=== PATIENT | female | born 1995 | race Caucasian/White ===

== ENCOUNTER 2021-12-16 04:29 | Emergency (ER) | payer OTHER, SELFPAY ==
[2021-12-16] VITALS (24 sets, daily range): BP systolic 111–157; BP diastolic 59–109; PULSE 71–106; RESP 12–21; TEMP 36.4; O2SAT 90–100
--- NOTE | ~2021-12-16 | US_ITS ---
EXAMINATION: US OB <=14 wk fetus w TV DATE: 12/16/2021 06:41 INDICATION: 8 weeks with worsening left lower quadrant pain. TECHNIQUE: Real-time pelvic ultrasound utilizing both a transvaginal and transabdominal probe was pe rformed. The interpreting radiologist was not present for the study. COMPARISON: None. FINDINGS: The uterus measures 7.0 x 2.5 x 3.8 cm. The endometrial complex measures5 mm in thickness. No eviden t intrauterine gestational sac. The right ovary measures 3.4 x 2.2 x 2.2 cm. The left ovary measures 3.8 x 2.4 x 2.3 cm. Vascular graham w identified at both the left and right ovaries on color Doppler. Situated between and abutting both the left ovary and the uterus is a 2.1 x 1.3 x 1.5 cm thick-walled centrally anechoic cystic lesion. There is no free fluid in the pelvis. IMPRESSION: 1. No evident intrauterine gestational sac for which the differential would include early, failed or ectopic . 2. 0.1 x 1.3 x 1.5 cm thick-walled centrally cystic lesion situated between and abutting both the lef t ovary and the uterus. Differential would include eccentrically positioned and exophytic corpus lute um cyst arising from the ovary or potentially an ectopic tubal . Would recommend [facility]EM[facility] A CLASS cons ultation. Dr. Agustin discussed these findings with Dr. Dc at 6:55 AM. Reviewed, dictated and finalized at location A. IMPRESSION: 1. No evident intrauterine gestational sac for which the differential would inc lude early, failed or ectopic . 2. 0.1 x 1.3 x 1.5 cm thick-walled centrally cystic lesion situated between and abutting both the left ovary and the uterus. Differential would include eccent rically positioned and exophytic corpus luteum cyst arising from the ovary or p otentially an ectopic tubal . Would recommend [facility] A CLASS consultation. Dr. Agustin discussed these findings with Dr. Dc at 6:55 AM.
[2021-12-16] MEDS: SODIUM CHLORIDE 0.9% IV 1,000 ML 999 ML IV CONT (04:54)
--- NOTE | 2021-12-16 05:00 | ED.GENADULT ---
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 Patient states that she has had follow-up with her COMPLIANCE NURSE and they suspect she is approximately 7-8 weeks . Patient has not had any abdominal ultrasound with this . Patient began having some left-sided abdominal pain last night and states that the abdominal pain is worsening. Patient states that when she uses the restroom she had been wiping and having blood on the paper. Patient states just prior to arrival she went to use the restroom and states she passed a clot at her the bowl red. This is the patient's first . Related Data Allergies Allergy/AdvReac Type Severity Reaction Status Date / Time No Known Allergies Allergy Verified 12/16/21 04:35 Course Course Emergency Course: Ultrasound was concerning for an ectopic . COMPLIANCE NURSE was paged. Patient was updated on the results of the ultrasound and on the plan for OB consultation. Patient is still having left lower quadrant pain. Case was discussed with Dr. Debbie Avila. Due to no free fluid in the pelvis and no concern for acute rupture it was felt that the patient would be able to be treated with methotrexate and discharged to home. -- Emily called back and stated that if this was a highly desired that they have the option of holding off on the current methotrexate, having a repeat beta-hCG in 2 days and following by ultrasound. I discussed this with the patient and they state this was a planned but they would prefer to wait the 2 days. I stressed the importance of return to the emergency department if the patient had any sharp acute changes in her pain. Patient was aware of the risk of discharge to home and patient preferred to hold on the methotrexate and have follow-up with Dr. Avila. Beta hCG was ordered for . Vital Signs Vital signs: Vital Signs Temperature 97.6 F 12/16/21 04:33 Pulse Rate 106 H 12/16/21 04:33 Respiratory Rate 20 12/16/21 04:33 Blood Pressure 157/89 H 12/16/21 04:33 Pulse Oximetry 100 12/16/21 04:33 Temperature 97.6 F 12/16/21 04:41 Pulse Rate 106 H 12/16/21 04:41 Respiratory Rate 20 12/16/21 04:41 Blood Pressure 157/89 H 12/16/21 04:41 Pulse Oximetry 100 12/16/21 04:41 Medical Decision Making Vital Signs Vital Signs: Vital Signs Temperature 97.6 F 12/16/21 04:33 Pulse Rate 106 H 12/16/21 04:33 Respiratory Rate 20 12/16/21 04:33 Blood Pressure 157/89 H 12/16/21 04:33 Pulse Oximetry 100 12/16/21 04:33 Temperature 97.6 F 12/16/21 04:41 Pulse Rate 106 H 12/16/21 04:41 Respiratory Rate 20 12/16/21 04:41 Blood Pressure 157/89 H 12/16/21 04:41 Pulse Oximetry 100 12/16/21 04:41 Lab Data Lab results reviewed: Yes I reviewed the patient's lab results. Result diagrams: 12/16/21 04:46 12/16/21 04:46 Labs: Lab Results 12/16/21 12/16/21 12/16/21 Range/Units 04:46 04:46 04:46 WBC 7.8 (4.5-10.0) K/mm3 RBC 5.08 (4.2-5.4) M/mm3 Hgb 14.5 (12.0-15.0) g/dL Hct 44.0 (37.0-47.0) % MCV 86.6 (80-100) fl MCH 28.5 (26-34) pg MCHC 33.0 (32-36) g/dl RDW 11.4 L (11.5-14.5) % Plt Count 235 (150-375) k/mm3 MPV 9.8 (7.4-10.4) fl Immature Gran % (Auto) 0.3 (0-0.5) % Neut % (Auto) 47.3 (45.5-73.1) % Lymph % (Auto) 40.9 (18.3-44.2) % [place] % (Auto) 8.2 (2.6-8.5) % Eos % (Auto) 2.8 (0-4.4) % Baso % (Auto) 0.5 (0.2-1.2) % Lymph # (Auto) 3.19 (0.9-3.2) K/mm3 [place] # (Auto) 0.6 (0.1-0.6) K/mm3 Eos # (Auto) 0.2 (0-0.3) K/mm3 Baso # (Auto)
[2021-12-16 05:04] LABS: Basophils Percent Auto 0.5 % (0.2-1.2); Eosinophils Absolute Auto 0.2 K/mm3 (0-0.3); Eosinophils Percent Auto 2.8 % (0-4.4); Hemoglobin 14.5 g/dL (12.0-15.0); Immature Granulocyte Absolute 0.02 K/mm3 (0.00-0.031); Immature Granulocyte Percent A 0.3 % (0-0.5); Lymphocytes Absolute Auto 3.19 K/mm3 (0.9-3.2); Lymphocytes Percent Auto 40.9 % (18.3-44.2); Mean Corpuscular Hemoglobin 28.5 pg (26-34); Mean Corpuscular Volume 86.6 fl (80-100); Mean Platelet Volume 9.8 fl (7.4-10.4); Monocytes Absolute Auto 0.6 K/mm3 (0.1-0.6); Monocytes Percent Auto 8.2 % (2.6-8.5); Neutrophils Absolute Auto 3.7 K/mm3 (1.3-6.7); Neutrophils Percent Auto 47.3 % (45.5-73.1); Platelet Count Result 235 k/mm3 (150-375); Red Blood Count 5.08 M/mm3 (4.2-5.4); Red Cell Distribution Width 11.4 % (11.5-14.5); White Blood Count 7.8 K/mm3 (4.5-10.0)
[2021-12-16 05:19] LABS: Alanine Aminotransferase 24 U/L (4-35); Alkaline Phosphatase 64 U/L (38-126); Anion Gap 8 mmol/L (8-16); Aspartate Amino Transferase 34 U/L (14-36); Bilirubin,Total 0.3 mg/dL (0.2-1.3); Blood Urea Nitrogen 10 mg/dL (7-17); Calcium 9.5 mg/dL (8.4-10.2); Carbon Dioxide 26 mmol/L (22-30); Chloride 103 mmol/L (98-107); Estimated CRCL calculation 134 ml/min; Estimated Glomerular Filt Rate > 60; Glucose 99 mg/dL (65-110); Potassium 3.7 mmol/L (3.4-5.0); Sodium 137 mmol/L (137-145)
[2021-12-16] MEDS: HYDROmorphone HCL INJ (*CRX) 1 MG/ML SYR IV PUSH (05:36)
[2021-12-16] MEDS: ONDANSETRON INJ 4 MG/2 ML VIAL IV PUSH (05:36)
[2021-12-16] MEDS: HYDROmorphone HCL INJ (*CRX) 1 MG/ML SYR 0.5 MG IV PUSH (07:54)
== END 2021-12-16 08:35 | disposition home or self-care (01) ==
PROVIDERS: Emergency Provider Emergency Medicine; PCP Nurse Practitioner Family
DX: O00.202 Left ovarian pregnancy without intrauterine pregnancy (principal)
CPT/HCPCS: 36415; 76801; 76817; 80053; 83605; 84702; 85025; 85610; 86850; 86900; 86901; 96361; 96374; 96375; 96376; 99284; J1170; J2405; J7030

== ENCOUNTER 2021-12-17 09:21 | Outpatient (CLI) | payer OTHER, SELFPAY ==
--- NOTE | ~2021-12-17 | US_ITS ---
EXAMINATION: US OB <=14 wk fetus w TV EXAM DATE: 12/17/2021 10:06 INDICATION: O36.80X0 - with inconclusive viability, n... 1st trimester. TECHNIQUE: Pelvic obstetrical transabdominal sonogram was performed by a technologist. There are mu ltiple grayscale and Doppler images available for interpretation. Comparison is made to prior examina tion from 12/16/2021. FINDINGS: The uterus measures 7.0 x 4.5 x 2.9 cm. There is trace fluid in the endometrial canal. No g estation sac is identified. No free pelvic fluid. The right ovary measures 3.3 x 2.7 x 2.2 cm and is morphologically normal, flow confirmed. Left ovary measures 3.3 x 2.7 x 3.1 cm, and there appears to be another heterogeneous vascularized re gion between the ovary and uterus measuring 2.5 x 1.6 x 1.7 cm. This potentially could be tubal ectop ic , but cannot confirm yolk sac or pole. IMPRESSION: Persistent vascularized region between uterus and left ovary, possible tubal ectopic pre gnancy. No free pelvic fluid. Trace endometrial fluid without intrauterine . Reviewed, dictated and finalized at location B. IMPRESSION: Persistent vascularized region between uterus and left ovary, poss ible tubal ectopic . No free pelvic fluid. Trace endometrial fluid wit hout intrauterine .
[2021-12-17 10:29] LABS: Basophils Percent Auto 0.6 % (0.2-1.2); Eosinophils Absolute Auto 0.2 K/mm3 (0-0.3); Eosinophils Percent Auto 4.3 % (0-4.4); Hematocrit 42.8 % (37.0-47.0); Immature Granulocyte Absolute 0.01 K/mm3 (0.00-0.031); Immature Granulocyte Percent A 0.2 % (0-0.5); Lymphocytes Absolute Auto 1.86 K/mm3 (0.9-3.2); Lymphocytes Percent Auto 36.3 % (18.3-44.2); Mean Corpuscular HGB Conc 32.7 g/dl (32-36); Mean Corpuscular Hemoglobin 28.7 pg (26-34); Mean Corpuscular Volume 87.7 fl (80-100); Mean Platelet Volume 9.9 fl (7.4-10.4); Monocytes Absolute Auto 0.5 K/mm3 (0.1-0.6); Monocytes Percent Auto 9.2 % (2.6-8.5); Neutrophils Absolute Auto 2.5 K/mm3 (1.3-6.7); Neutrophils Percent Auto 49.4 % (45.5-73.1); Platelet Count Result 214 k/mm3 (150-375); Red Blood Count 4.88 M/mm3 (4.2-5.4); Red Cell Distribution Width 11.4 % (11.5-14.5); White Blood Count 5.1 K/mm3 (4.5-10.0)
[2021-12-17 10:37] LABS: Potassium 3.9 mmol/L (3.4-5.0)
[2021-12-17 10:42] LABS: Alanine Aminotransferase 29 U/L (4-35); Albumin Level 4.8 g/dL (3.5-5.1); Alkaline Phosphatase 62 U/L (38-126); Anion Gap 8 mmol/L (8-16); Aspartate Amino Transferase 34 U/L (14-36); Bilirubin,Total 0.3 mg/dL (0.2-1.3); Blood Urea Nitrogen 7 mg/dL (7-17); Calcium 9.4 mg/dL (8.4-10.2); Carbon Dioxide 28 mmol/L (22-30); Chloride 103 mmol/L (98-107); Estimated Glomerular Filt Rate > 60; Glucose 88 mg/dL (65-110); Sodium 139 mmol/L (137-145)
== END 2021-12-17 09:22 | disposition home or self-care (01) ==
PROVIDERS: PCP Nurse Practitioner Family; Visit Provider Obstetrics & Gynecology
DX: O36.80X0 Pregnancy with inconclusive fetal viability, not applicable or unspecified (principal)
CPT/HCPCS: 36415; 76801; 76817; 80053; 84702; 85025

== ENCOUNTER 2021-12-20 11:45 | Outpatient (CLI) | payer OTHER, SELFPAY ==
[2021-12-20 12:29] LABS: Beta HCG Quantitative 473.56 mIU/ML
== END 2021-12-20 11:46 | disposition home or self-care (01) ==
LOC: ANHOBOP 11:48
PROVIDERS: Visit Provider Obstetrics & Gynecology
DX: O36.80X0 Pregnancy with inconclusive fetal viability, not applicable or unspecified (principal); Z3A.00 Weeks of gestation of pregnancy not specified
CPT/HCPCS: 36415; 84702

== ENCOUNTER 2021-12-23 13:36 | Outpatient (CLI) | payer OTHER, SELFPAY | END 2021-12-23 13:37 | disposition home or self-care (01) | LOC: ANHLAB 13:38 | PROVIDERS: Visit Provider Obstetrics & Gynecology | DX: O36.80X0 Pregnancy with inconclusive fetal viability, not applicable or unspecified (principal); Z3A.00 Weeks of gestation of pregnancy not specified | CPT/HCPCS: 36415; 84702 ==

== ENCOUNTER 2021-12-26 23:32 | Emergency (ER) | payer OTHER, SELFPAY ==
--- NOTE | ~2021-12-26 | US_ITS ---
EXAMINATION: US OB <=14 wk fetus w TV EXAM DATE: 12/27/2021 01:03 INDICATION: Known ectopic, acute worsening pain . 1st trimester. TECHNIQUE: Pelvic obstetrical transabdominal sonogram was performed by a technologist. There are mu ltiple grayscale and Doppler images available for interpretation. Comparison is made to prior examina tion from 12/17/2021. FINDINGS: The uterus measures 7.1 x 4.0 x 2.9 cm, has an increase in the fundal endometrial canal thi ckness,, and development of anechoic fluid component along with some echogenic endometrial material. No heart tones identified within this. Left ovary measures 3.3 x 2.3 x 2.7 cm, not significant changed. Again there is a heterogeneous left adnexal region measuring 1.7 x 1.3 x 1.5 cm (previous dimensions 2.5 x 1.6 x 1.7 cm. Small cystic com ponent within this, possible tubal ectopic location. Right ovary unremarkable. IMPRESSION: 1. No viable intrauterine or extrauterine . 2. Mild decrease in size of left adnexal heterogeneous region, possible tubal ectopic . 3. Small amount of endometrial canal fluid and echogenic debris. Reviewed, dictated and finalized at location A.
[2021-12-26 23:35] VITALS: BP 140/85; PULSE 100; RESP 17; TEMP 36.1; O2SAT 100
--- NOTE | 2021-12-27 00:02 | ED.GENADULT ---
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 Patient initially had ultrasound on 331 and ectopic was suspected. Patient was started on methotrexate. Patient has been having follow-up with Dr. Avila and her beta hCG was not decreasing steady enough so she was given a second dose of methotrexate on 12/24. Patient states that her pain had been controlled and she had not needed any medications for pain control until tonight she had increased left lower quadrant pain. Patient has been having persistent intermittent vaginal bleeding but reports no change in vaginal bleeding today. Related Data Home Medications Medication Instructions Recorded Confirmed escitalopram oxalate 10 mg tablet 10 mg PO DAILY 12/17/21 12/17/21 Allergies Allergy/AdvReac Type Severity Reaction Status Date / Time No Known Allergies Allergy Verified 12/26/21 23:37 Review of Systems Review of Systems: CONSTITUTIONAL: Denies fever, chills, or sweats. EYES: Denies visual changes, redness, or discharge. ENT: Denies rhinorrhea, congestion, sore throat, or otalgia. CARDIOVASCULAR: Denies chest pain, palpitations, or edema. RESPIRATORY: Denies cough or dyspnea. GASTROINTESTINAL: Left lower quadrant pain. GENITOURINARY: Denies dysuria or hematuria. SKIN: Denies rash or itching. MUSCULOSKELETAL: Denies back pain, joint pain, or myalgia. NEUROLOGIC: Denies headache, numbness, or weakness. [facility] Surgical History Surgical History (Updated 12/17/21 @ 08:20 by Rosalind Lee MA) History of cholecystectomy History of tonsillectomy and adenoidectomy Family History Family History (Updated 12/17/21 @ 08:21 by Rosalind Lee MA) Mother Endometriosis Other Thyroid disease Social History Social History (Updated 12/17/21 @ 08:22 by Rosalind Lee MA) Smoking status: Never smoker Alcohol intake: never Substance use: never Substance use type: does not use Additional occupation/education comments: stay at home Gender identity (if verbalized by the patient): Female Sexual Orientation (if Verbalized by the Patient): Straight or Heterosexual Exam Narrative: APPEARANCE: Well appearing, no pain, no distress, well-nourished. HEAD: normocephalic, atraumatic. EYES: PERRLA/EOMI, conjunctivae clear. RESPIRATORY: Airway patent, respirations nonlabored. Clear to auscultation bilaterally, no rales, rhonchi, wheezing. CARDIOVASCULAR: Regular rate and rhythm without murmurs rubs or gallops. ABDOMINAL: Soft nondistended, normal bowel sounds. Some left lower quadrant tenderness to palpation MUSCULOSKELETAL: Moves all extremities. Strength/ROM intact, No edema, No calf tenderness. NEURO: Alert. Cranial nerves II through XII intact. Good gait. Good coordination SKIN: Warm, dry. Normal Color Course Course Emergency Course: Discussed case with Dr Avila. Requested a repeat US. labs pending at time of consult. Dr. Avila requested an ultrasound to reevaluate for ruptured ectopic. Patient's beta-hCG is decreased compared to 12/23. Ultrasound showed no free fluid. Patient's pain is controlled at this time. Case was rediscussed with Dr. Avila and she was comfortable with the plan for discharge to home and close follow-up. Patient and family were updated on the results of the work-up. Patient will be provided medications for pain control. Patient states that she was having some issues with constipation and patient was educated on the use of MiraLAX and increasing her hydration. All questions and concerns were addressed. Vital Signs Vital signs: Vital Si
[2021-12-27] MEDS: HYDROmorphone HCL INJ (*CRX) 1 MG/ML SYR IV PUSH ×2 (00:17→03:27)
[2021-12-27] MEDS: ONDANSETRON INJ 4 MG/2 ML VIAL IV PUSH (00:17)
[2021-12-27] MEDS: SODIUM CHLORIDE 0.9% IV 1,000 ML 999 ML IV CONT (00:17)
[2021-12-27 00:20] LABS: Basophils Percent Auto 0.5 % (0.2-1.2); Eosinophils Absolute Auto 0.2 K/mm3 (0-0.3); Eosinophils Percent Auto 3.2 % (0-4.4); Hematocrit 38.1 % (37.0-47.0); Hemoglobin 12.7 g/dL (12.0-15.0); Immature Granulocyte Absolute 0.01 K/mm3 (0.00-0.031); Immature Granulocyte Percent A 0.1 % (0-0.5); Lymphocytes Absolute Auto 2.67 K/mm3 (0.9-3.2); Lymphocytes Percent Auto 35.9 % (18.3-44.2); Mean Corpuscular HGB Conc 33.3 g/dl (32-36); Mean Corpuscular Hemoglobin 28.7 pg (26-34); Mean Corpuscular Volume 86.2 fl (80-100); Mean Platelet Volume 9.6 fl (7.4-10.4); Monocytes Absolute Auto 0.3 K/mm3 (0.1-0.6); Monocytes Percent Auto 4.6 % (2.6-8.5); Neutrophils Absolute Auto 4.1 K/mm3 (1.3-6.7); Neutrophils Percent Auto 55.7 % (45.5-73.1); Platelet Count Result 247 k/mm3 (150-375); Red Blood Count 4.42 M/mm3 (4.2-5.4); Red Cell Distribution Width 11.7 % (11.5-14.5); White Blood Count 7.4 K/mm3 (4.5-10.0)
[2021-12-27 00:24] LABS: INR 0.9; Prothrombin Time 12.1 Seconds (11.1-14.7)
[2021-12-27 00:47] LABS: Alanine Aminotransferase 71 U/L (4-35); Albumin Level 4.1 g/dL (3.5-5.1); Alkaline Phosphatase 66 U/L (38-126); Anion Gap 5 mmol/L (8-16); Aspartate Amino Transferase 47 U/L (14-36); Bilirubin,Total 0.4 mg/dL (0.2-1.3); Blood Urea Nitrogen 14 mg/dL (7-17); Calcium 8.4 mg/dL (8.4-10.2); Carbon Dioxide 25 mmol/L (22-30); Chloride 105 mmol/L (98-107); Estimated Glomerular Filt Rate > 60; Glucose 143 mg/dL (65-110); Potassium 3.7 mmol/L (3.4-5.0); Sodium 135 mmol/L (137-145)
[2021-12-27] MEDS: HYDROmorphone HCL INJ (*CRX) 1 MG/ML SYR 0.5 MG IV PUSH (02:08)
== END 2021-12-27 03:34 | disposition home or self-care (01) ==
PROVIDERS: Emergency Provider Emergency Medicine; PCP Nurse Practitioner Family
DX: O00.90 Unspecified ectopic pregnancy without intrauterine pregnancy (principal); R10.2 Pelvic and perineal pain
CPT/HCPCS: 36415; 76801; 76817; 80053; 84702; 85025; 85610; 86850; 86900; 86901; 96361; 96374; 96375; 96376; 99284; J1170; J2405; J7030

== ENCOUNTER 2021-12-30 09:57 | Outpatient (CLI) | payer OTHER, SELFPAY ==
[2021-12-30 11:06] LABS: Beta HCG Quantitative 50.34 mIU/ML
== END 2021-12-30 09:58 | disposition home or self-care (01) ==
LOC: ANHLAB 09:58
PROVIDERS: PCP Nurse Practitioner Family; Visit Provider Obstetrics & Gynecology
DX: O36.80X0 Pregnancy with inconclusive fetal viability, not applicable or unspecified (principal); Z3A.00 Weeks of gestation of pregnancy not specified
CPT/HCPCS: 36415; 84702

== ENCOUNTER 2022-01-13 07:45 | Outpatient (CLI) | payer OTHER, SELFPAY ==
[2022-01-13 08:27] LABS: Beta HCG Quantitative < 2.39 mIU/ML
== END 2022-01-13 07:46 | disposition home or self-care (01) ==
LOC: ANHLAB 07:47
PROVIDERS: PCP Nurse Practitioner Family; Visit Provider Obstetrics & Gynecology
DX: O00.90 Unspecified ectopic pregnancy without intrauterine pregnancy (principal)
CPT/HCPCS: 36415; 84702

== ENCOUNTER 2022-07-07 09:21 | Outpatient (CLI) | payer OTHER, SELFPAY ==
[2022-07-07 10:29] LABS: Beta HCG Quantitative < 2.39 mIU/ML
[2022-07-10 04:14] LABS: FSH 4.8 mIU/mL (***); Prolactin 12.9 ng/mL (***)
[2022-07-11 02:26] LABS: DHEA-Sulfate 363 mcg/dL (18-391)
[2022-07-13 06:55] LABS: Testosterone Free 1.9 pg/mL (0.1-6.4); Testosterone Total 20 ng/dL (2-45)
[2022-07-15 20:36] LABS: Estradiol, Ultrasensitive 48 pg/mL
== END 2022-07-07 09:22 | disposition home or self-care (01) ==
LOC: ANHLAB 09:23
PROVIDERS: PCP Nurse Practitioner Family; Visit Provider Obstetrics & Gynecology
DX: N97.1 Female infertility of tubal origin (principal)
CPT/HCPCS: 36415; 82627; 82670; 83001; 84146; 84402; 84403; 84702

== ENCOUNTER 2022-08-02 09:55 | Outpatient (CLI) | payer OTHER, SELFPAY ==
[2022-08-08 18:11] LABS: Progesterone 8.1 ng/mL (***)
== END 2022-08-02 09:56 | disposition home or self-care (01) ==
LOC: ANHLAB 09:56
PROVIDERS: PCP Nurse Practitioner Family; Visit Provider Obstetrics & Gynecology
DX: N97.1 Female infertility of tubal origin (principal)
CPT/HCPCS: 36415; 84144

== ENCOUNTER → 2023-02-08 11:25 | Outpatient (CLI) | payer OTHER, SELFPAY ==
--- NOTE | ~2023-02-08 | US_ITS ---
EXAMINATION: US pelvic complete w TV DATE: 02/08/2023 11:51 INDICATION: Left pelvic pain. Comparison:Ultrasound dated 12/27/2021 TECHNIQUE: Multiple transabdominal and endovaginal sonographic images of the pelvis performed. FINDINGS: The uterus measures 7.1 x 2.7 x 3.9 cm. The endometrial complex measures 3 mm. The right ovary measures 2.9 x 2 x 2.7 cm and the left ovary measures 3.1 x 2.2 x 2.2 cm. There is a pedunculated 1.8 x 1.3 x 1.5 cm mass contiguous with the left ovary with possible associated follicul ar changes. This is not significantly changed from prior study allowing for differences of technique. Consider correlation with MRI without and with contrast. There are small follicles in each ovary. No rmal doppler signal in both ovaries. There is no free fluid in the pelvis. There are no abnormal masses seen on either side. IMPRESSION: 1. Pedunculated 1.8 x 1.3 x 1.5 cm mass contiguous with the left ovary with possible follicular hanson es. This is not significantly changed from prior study allowing for differences of technique. Conside r correlation with MRI without and with contrast. Reviewed, dictated and finalized at location L. IMPRESSION: 1. Pedunculated 1.8 x 1.3 x 1.5 cm mass contiguous with the left ovary with pos sible follicular changes. This is not significantly changed from prior study al lowing for differences of technique. Consider correlation with MRI without and with contrast.
== END ==
PROVIDERS: PCP Nurse Practitioner Family; Visit Provider Obstetrics & Gynecology
DX: R10.2 Pelvic and perineal pain (principal)
CPT/HCPCS: 76830; 76856

== ENCOUNTER 2023-02-08 11:52 | Outpatient (CLI) | payer OTHER, SELFPAY ==
[2023-02-08 21:28] LABS: Beta HCG Quantitative < 2.39 mIU/ML
[2023-02-12 04:29] LABS: FSH 5.7 mIU/mL (***); Progesterone 0.5 ng/mL (***); Prolactin 7.7 ng/mL (***)
[2023-02-12 13:03] LABS: DHEA-Sulfate 428 mcg/dL (18-391)
[2023-02-13 12:58] LABS: Testosterone Free 4.2 pg/mL (0.1-6.4); Testosterone Total 37 ng/dL (2-45)
[2023-02-15 14:53] LABS: Anti Mullerian Hormone,Female 10.42 ng/mL (0.69-13.39)
[2023-02-20 00:06] LABS: Estradiol, Ultrasensitive 35 pg/mL
== END 2023-02-08 11:53 | disposition home or self-care (01) ==
LOC: ANHGOSHLAB 11:53
PROVIDERS: PCP Nurse Practitioner Family; Visit Provider Obstetrics & Gynecology
DX: N92.6 Irregular menstruation, unspecified (principal)
CPT/HCPCS: 36415; 82627; 82670; 83001; 83498; 84144; 84146; 84402; 84403; 84443; 84702

== ENCOUNTER 2023-02-28 01:42 | Day surgery (SDC) | payer OTHER, SELFPAY ==
[2023-02-21 14:20] VITALS: BMI 25.9
--- NOTE | 2023-02-21 14:21 | SUR.PREOP ---
Report to the Outpatient Waiting Room, entrance under the green pavilion located off [facility], at time _0745 on date _02/28/23 . Planned Procedure Time: _944 . Time changes happen often and if your time is changed the preop area will call you the afternoon before. - You and your visitor will be asked to self-screen and do not enter if you have any COVID symptoms. - A mask is optional within the hospital at this time. Patients may have clear liquids (water, carbonated beverages, clear teas, apple juice) until 3 hours prior to surgery with a maximum of 20 ounces. - No food from midnight until time of surgery - Infants may have breast milk until 4 hours before surgery, infant formula 6 hours prior to surgery. - Children will be allowed to drink immediately following surgery. If applicable, please bring a bottle or sippy cup to assist with drinking. Juice, water, soda, and popsicles are readily available. For infants on formula, please bring formula the day of surgery. Pacifiers are allowed. Take the following medications with a SIP of water the morning of surgery: ____n/a DO NOT STOP ANY OF YOUR OTHER PRESCRIPTION MEDICATIONS PRIOR TO SURGERY ?EXCEPT THE FOLLOWING Medications to discontinue per physician __vitamins Date to take last dose___02/25/23 Please no make-up, nail malian, hairspray, perfume, deodorant, or body powder the day of surgery. No jewelry (including any body piercings) or valuables the day of surgery, leave them at home. Please take a shower or bath the night before, or the morning of, surgery with an antibacterial soap. Wear comfortable, loose fitting clothing. Children are encouraged to wear pajamas. - Jewelry must be removed prior to entering the operating room. Rings and piercings that are not removed may be cut off. - The hospital will not accept responsibility for valuables. - Please leave all valuables, including medications, at home the day of surgery. If you are going home after surgery, a licensed otr flatbed driver must drive you home. - NO public transportation without another adult if you receive anesthesia. - We recommend that an adult stay with you for 24 hours following discharge. - We also recommend that you do not drive, make important decision, drink alcoholic beverages, or take any drugs that were not prescribed by your health care provider for at least 24 hours after your discharge time. For Pediatric surgeries, we recommend two adults accompany the child home. Follow any additional instructions given to you from your surgeon. If you or anyone in your household have experienced Covid symptoms in the past week, please notify your surgeon or the nurse liaison at the phone number below for possible testing. Telephone instructions given to _lenny alvarenga and asked if any additional questions and then verbalized understanding. Patient advised to call surgeon office or pre surgery nurse liaison [phone] if any additional questions.
[2023-02-28] VITALS (13 sets, daily range): BP systolic 110–144; BP diastolic 61–88; PULSE 63–87; RESP 8–18; TEMP 36.3–37.4; O2SAT 96–100
--- NOTE | 2023-02-28 07:06 | WPDHPUPDATE1 ---
History and Physical Update Update Date/Time: 02/28/23 07:06 History and Physical has been reviewed, including an updated exam of the patient. There are NO changes in the patient's condition. Risks, benefits, and alternatives have been discussed and questions answered. Patient agrees to proceed with diagnostic laparoscopy, with possible unilateral cystectomy, and possible fulguration of any endometrial implants.
[2023-02-28] MEDS: ACETAMINOPHEN 500 MG TABLET 1000 MG PO (08:11)
[2023-02-28] MEDS: LACTATED RINGERS 1,000 ML 30 ML IV CONT ×2 (08:21→12:11)
--- NOTE | 2023-02-28 08:42 | WPDANESEPPF ---
Anes - Initial Pre Proc Eval Procedure: Operation Date: 02/28/23 09:45 Proposed Procedures p Diagnostic Laparoscopy, Possible Lysis of Adhesions, Possible Left Ovarian Cystectomy - Debbie Avila MD Date/Time: 02/28/23 08:42 Surgeon: Debbie Avila MD Pre Op Diagnosis: Pelvic Pain Patient Data Age: 27 Gender: F Height: 1.7 m Weight: 72.4 kg Last Vital Signs Temp 37.4 C 02/28/23 08:34 Pulse 81 02/28/23 08:34 Resp 16 02/28/23 08:34 BP 144/88 H 02/28/23 08:34 Pulse Ox 99 02/28/23 08:34 O2 Del Method Room Air 02/28/23 08:34 Allergies Allergy/AdvReac Type Severity Reaction Status Date / Time No Known Allergies Allergy Verified 02/28/23 07:58 Home Medications Medication Instructions Recorded Confirmed Type ascorbic acid (vitamin C) 250 mg 250 mg PO DAILY 02/21/23 02/28/23 History tablet (Vitamin C) cholecalciferol (vitamin D3) 25 25 mcg PO DAILY 02/21/23 02/28/23 History mcg (1,000 unit) capsule (Vitamin D3) [id number] 1 mg 1 tablet PO DAILY 02/21/23 02/28/23 History tablet Patient hx anesthesia problems: none Family hx anesthesia problems: none Results Review: All pre-operative results and documents have been reviewed as part of the pre-operative evaluation. [facility] Past Medical History Medical History Ectopic Surgical History Surgical History History of cholecystectomy History of tonsillectomy and adenoidectomy Family History Family History Mother Endometriosis Other Thyroid disease Social History Social History Smoking status: Never smoker Alcohol intake: never Substance use: never Substance use type: does not use Living arrangements: with family Occupation/Education: occupation Additional occupation/education comments: stay at home Gender identity (if verbalized by the patient): Female Sexual Orientation (if Verbalized by the Patient): Straight or Heterosexual Spiritual care concerns: No Anes - Eval Final PreProcedure Day of Procedure 02/28/23 08:42 Patient weight: normal Heart: regular rate and rhythm Lungs: clear to auscultation Airway: Mallampati scale class II Neurological: alert and oriented Last oral intake: >/= 8 hours ASA classification: I Emergent: no Anesthetic plan: proceed Anesthesia type and monitoring: general ETT and standard monitoring Results Review: All pre-operative results and documents have been reviewed as part of the pre-operative evaluation. Informed Consent: The patient's anesthetic plan and its attendant risks and benefits were discussed with the patient/family/POA. Questions were solicited and answers provided to the satisfaction of the patient/family/POA.
[2023-02-28] MEDS: KETOROLAC 15 MG/ML VIAL (*BKC) IV PUSH (09:46)
[2023-02-28] MEDS: BUPIVACAINE/EPINEPHRINE 0.5% 50 ML VIAL 30 ML INFILTRATE (10:35)
[2023-02-28] MEDS: METHYLENE BLUE 0.5% INJ 10 ML AMPULE IRRIGATION (10:52)
--- NOTE | 2023-02-28 11:52 | W.PM.PROC2 ---
Procedure Note - Detailed Date of Procedure 02/28/23 Pre-op Diagnosis Pelvic Pain Post-op Diagnosis Same Procedure Performed Diagnostic laparoscopy, left ovarian cystectomy, lysis of adhesions, fulguration of endometrial implants, abdominal wall biopsy, and chromopertubation. Surgeon Debbie Avila MD Anesthesia General Findings Multiple adhesions of the colon to the bilateral pelvic robledo; taken down. Endometrial implants noted on uterus, bilateral fallopian tubes, cul-de-sac, pelvic side robledo, and anterior abdominal wall. 2cm left ovarian cyst removed in whole, ruptured in bag and noted to have old blood (endometrioma). Chromopertubation performed at the end of the case with leakage of blue dye from the left side; no filling (proximal portion of right tube noted to be atrophic/thin) or spillage noted from the right tube. Description of Procedure Yoanna was taken to the operating room where she was placed under general endotracheal anesthesia without complications. She was then prepped and draped in the usual sterile fashion in the dorsal lithotomy position with her legs in low Jeovany stirrups and her arms tucked at her side with a strap over her chest. A time-out was performed and no preoperative antibiotics were indicated. My attention was turned down below where her bladder was drained via straight catheterization. A bivalve speculum was then placed within the vagina where the cervix was easily identified. The anterior lip of the cervix was grasped with a single-tooth tenaculum and a diagnostic uterine manipulator was placed without complications. My gloves were changed and my attention was turned to her abdomen. An umbilical incision was made, and a 5 mm trocar was placed under direct visualization without complications. Once intra-abdominal placement was confirmed, the abdomen was insufflated with carbon dioxide gas. She was then placed in Trendelenburg and two additional 5 mm ports were placed in the left and right lower quadrants under direct visualization without complications. The above findings were noted. Using the LigaSure device, scissors, and blunt grasper the adhesions were slowly and carefully taken down in the left and right pelvis to free the colon. The adhesions were noted to be dense and sticky consistent with endometriosis and a sample of the peritoneum with adhesions/endometriosis was obtained and sent to pathology. The lysis of adhesion occurred for approximately 30 minutes trying to free up the bowel from the left and right pelvic sidewalls, paying careful attention to not damage the bowel. Once the bowel was released my attention was turned to the left ovarian cyst, using the LigaSure device I was able to remove the cyst in whole and placed it in front of the uterus. The pelvis was closely examined and the endometriosis implants were cauterized using the hook of the LigaSure device. I did not fulgurate the fallopian tube implants or grasp either fallopian tube (did not want to damage either tube). The umbilical port was upsized to an 8mm tocar and a 7mm bag was placed in the abdomen. The cyst was then placed in the bag and was removed from the abdomen; the cyst was noted to have popped in the bag and old blood was noted (chocolate cyst). The chromopertubation was then performed with approximately 100cc of blue dye and spillage was noted from the left fallopian tube (as well as filling in the left tube). There was no spillage from the right fallopian tube and the right tube was not noted to have filled at all and appeared very atrophic and thin proximately from the cornua on. The pelvis was irrigated and suctioned free of all clots, debris, and blue dye. Good hemostasis was noted. All instruments were removed from the abdomen. The insufflation was released and the trocars were removed. The 3 laparoscopic incision sites were reapproximated using 4-0 Monocryl and covered with Dermabond. The incisions were then infiltrated using 0.25%
[2023-02-28] MEDS: fentaNYL CITRATE INJ (*CRX) 100 MCG/2 ML VIAL 25 MCG IV PUSH ×4 (12:16→12:41)
[2023-02-28] MEDS: SCOPOLAMINE 1.5 MG PATCH TRANSDERM (12:18)
[2023-02-28] MEDS: HYDROmorphone HCL INJ (*CRX) 1 MG/ML SYR 0.5 MG IV PUSH ×2 (12:55→13:02)
[2023-02-28] MEDS: oxyCODONE HCL (*CRX) 5 MG TAB IR PO (14:01)
[2023-02-28] MEDS: ONDANSETRON INJ 4 MG/2 ML VIAL IV PUSH (14:06)
[2023-02-28] MEDS: diphenhydrAMINE HCl INJ 50 MG/ML VIAL 25 MG IV PUSH (15:39)
== END 2023-02-28 16:25 | disposition home or self-care (01) ==
PROVIDERS: PCP Nurse Practitioner Family; Visit Provider Obstetrics & Gynecology
PROC: (CPT 49320; principal; 2023-02-28 09:45)
DX: N80.203 Endometriosis of bilateral fallopian tubes, unspecified depth (principal); N80.00 Endometriosis of the uterus, unspecified; N80.C19 Endometriosis of the anterior abdominal wall, unspecified depth; K66.0 Peritoneal adhesions (postprocedural) (postinfection); R10.2 Pelvic and perineal pain; N83.202 Unspecified ovarian cyst, left side
CPT/HCPCS: 58662; 49321; 88304; 88305; A9270; J1100; J1170; J1200; J1885; J2250; J2405; J2704; J2710; J3010; J7030; J7120; Q9968

== ENCOUNTER 2023-04-21 10:08 | Outpatient (CLI) | payer OTHER, SELFPAY ==
[2023-04-21 11:15] LABS: Beta HCG Quantitative < 2.39 mIU/ML
== END 2023-04-21 10:09 | disposition home or self-care (01) ==
LOC: ANHLAB 10:10
PROVIDERS: PCP Nurse Practitioner Family; Visit Provider Obstetrics & Gynecology
DX: N91.2 Amenorrhea, unspecified (principal)
CPT/HCPCS: 36415; 84702

== ENCOUNTER 2023-10-03 14:43 | Outpatient (CLI) | payer OTHER, SELFPAY ==
[2023-10-03 15:38] LABS: Beta HCG Quantitative 15.14 mIU/ML
[2023-10-05 06:15] LABS: Progesterone 6.7 ng/mL (***)
== END 2023-10-03 14:44 | disposition home or self-care (01) ==
LOC: ANHLAB 14:45
PROVIDERS: PCP Nurse Practitioner Family; Visit Provider Student in an Organized Health Care Education/Training Program
DX: N91.2 Amenorrhea, unspecified (principal)
CPT/HCPCS: 36415; 84144; 84702

== ENCOUNTER 2023-10-10 14:35 | Outpatient (CLI) | payer OTHER, SELFPAY | END 2023-10-10 14:36 | disposition home or self-care (01) | LOC: ANHLAB 14:36 | PROVIDERS: PCP Nurse Practitioner Family; Visit Provider Student in an Organized Health Care Education/Training Program | DX: N91.2 Amenorrhea, unspecified (principal) | CPT/HCPCS: 36415; 84702 ==

== ENCOUNTER 2023-10-11 12:47 | Outpatient (CLI) | payer OTHER, SELFPAY ==
--- NOTE | ~2023-10-11 | US_ITS ---
EXAMINATION: US OB <=14 wk fetus w TV DATE: 10/11/2023 13:21 INDICATION: Threatened . Left-sided pelvic pain. TECHNIQUE: Real-time pelvic ultrasound utilizing both a transvaginal and transabdominal probe was pe rformed. The interpreting radiologist was not present for the study. COMPARISON: None. FINDINGS: The uterus measures 7.6 x 2.6 x 4.8 cm. There is an 2-3 mm likely intrauterine gestational sac with double decidual sign but without a discernible internal yolk sac or pole likely due to early st age of . The mean sac diameter is below the range for assessment of gestational age. The right ovary measures 2.5 x 2.0 x 2.2 cm. The left ovary measures 4.1 x 2.6 x 2.8 cm. There is a 2 .4 x 1.4 x 1.5 cm likely corpus luteum cyst within the periphery of the left ovary. There are a few a dditional subcentimeter anechoic cysts/follicles at both ovaries. There is no free fluid in the pelvi s. IMPRESSION: 1. 2-3 mm intrauterine gestational sac with double decidual sign but no discernible yolk sac or pole likely due to early stage of . The mean sac diameter remains below the threshold for a ccurate assessment for gestational age. Reviewed, dictated and finalized at location [facility] IMPRESSION: 1. 2-3 mm intrauterine gestational sac with double decidual sign but no discern ible yolk sac or pole likely due to early stage of . The mean sa c diameter remains below the threshold for accurate assessment for gestational age.
== END 2023-10-11 12:48 ==
LOC: MICIMG 12:52
PROVIDERS: PCP Obstetrics & Gynecology; Visit Provider Obstetrics & Gynecology
DX: O20.0 Threatened abortion (principal); Z3A.00 Weeks of gestation of pregnancy not specified
CPT/HCPCS: 76801; 76817

== ENCOUNTER 2023-10-12 14:15 | Outpatient (CLI) | payer OTHER, SELFPAY | END 2023-10-12 14:16 | disposition home or self-care (01) | LOC: ANHLAB 14:16 | PROVIDERS: PCP Obstetrics & Gynecology; Visit Provider Obstetrics & Gynecology | DX: O20.0 Threatened abortion (principal); Z3A.00 Weeks of gestation of pregnancy not specified | CPT/HCPCS: 36415; 84702 ==

== ENCOUNTER 2023-10-14 14:22 | Outpatient (CLI) | payer OTHER, SELFPAY | END 2023-10-14 14:23 | disposition home or self-care (01) | LOC: ANHLAB 14:24 | PROVIDERS: PCP Nurse Practitioner Family; Visit Provider Obstetrics & Gynecology | DX: O20.0 Threatened abortion (principal); Z3A.00 Weeks of gestation of pregnancy not specified | CPT/HCPCS: 36415; 84702 ==

== ENCOUNTER 2023-10-31 11:50 | Outpatient (CLI) | payer OTHER, SELFPAY ==
[2023-10-31 12:18] LABS: Basophils Percent Auto 0.5 % (0.2-1.2); Eosinophils Absolute Auto 0.1 K/mm3 (0-0.3); Eosinophils Percent Auto 1.7 % (0-4.4); Hematocrit 38.1 % (37.0-47.0); Hemoglobin 12.6 g/dL (12.0-15.0); Immature Granulocyte Absolute 0.03 K/mm3 (0.00-0.031); Immature Granulocyte Percent A 0.4 % (0-0.5); Lymphocytes Absolute Auto 1.78 K/mm3 (0.9-3.2); Lymphocytes Percent Auto 23.5 % (18.3-44.2); Mean Corpuscular HGB Conc 33.1 g/dl (32-36); Mean Corpuscular Hemoglobin 28.1 pg (26-34); Mean Platelet Volume 9.2 fl (7.4-10.4); Monocytes Absolute Auto 0.6 K/mm3 (0.1-0.6); Monocytes Percent Auto 8.1 % (2.6-8.5); Neutrophils Percent Auto 65.8 % (45.5-73.1); Platelet Count Result 255 k/mm3 (150-375); Red Blood Count 4.48 M/mm3 (4.2-5.4); Red Cell Distribution Width 11.7 % (11.5-14.5); White Blood Count 7.6 K/mm3 (4.5-10.0)
[2023-10-31 13:07] LABS: HIV 1/2 Ab P24 Ag Result Negative (Negative)
[2023-10-31 13:15] LABS: Hepatitis B Surface Antigen Negative (Negative); Rubella IgG Antibody 24.2 IU/ML
[2023-11-01 12:15] LABS: Rapid Plasma Reagin Non-Reactive (NonReactive)
[2023-11-02 16:15] LABS: CMV IgG Antibody <0.60 U/mL (<0.60)
== END 2023-10-31 11:51 | disposition home or self-care (01) ==
LOC: ANHLAB 11:52
PROVIDERS: PCP Nurse Practitioner Family; Visit Provider Obstetrics & Gynecology
DX: Z34.90 Encounter for supervision of normal pregnancy, unspecified, unspecified trimester (principal); Z3A.00 Weeks of gestation of pregnancy not specified
CPT/HCPCS: 36415; 85025; 86592; 86644; 86703; 86747; 86762; 86787; 86850; 86900; 86901; 87086; 87340; G0432

== ENCOUNTER 2023-11-09 16:15 | Emergency (ER) | payer OTHER, SELFPAY ==
--- NOTE | 2023-11-09 16:25 | ED.GENADULT ---
HPI - General Adult General Chief complaint: Upper Respiratory Infection Stated complaint: Sore Throat Source: patient, RN notes reviewed and old records reviewed Mode of arrival: ambulatory Limitations: no limitations History of Present Illness HPI narrative: Please in year old female presents to [facility] with complaints congestion, myalgia, sore throat this started 2-3 days ago. Patient taking Tylenol with no relief. Patient is 9 weeks . Related Data Home Medications Medication Instructions Recorded Confirmed ascorbic acid (vitamin C) 250 mg 250 mg PO DAILY 02/21/23 10/31/23 tablet (Vitamin C) cholecalciferol (vitamin D3) 25 25 mcg PO DAILY 02/21/23 10/31/23 mcg (1,000 unit) capsule (Vitamin D3) [id number] 1 mg 1 tablet PO DAILY 02/21/23 10/31/23 tablet progesterone micronized 100 mg 1 insert vaginal BID 10/31/23 10/31/23 vaginal insert Allergies Allergy/AdvReac Type Severity Reaction Status Date / Time No Known Allergies Allergy Verified 11/09/23 16:18 Review of Systems Constitutional: Constitutional: Reports no additional constitutional complaints, Reports body ache(s), Denies chills, Denies fatigue, Reports fever(s) and Denies headache(s) Eyes: Eyes: Reports no additional eye complaints and Denies blurry vision ENT: Reports system reviewed and no additional complaints, except as documented, Denies vertigo, Denies dizziness, Denies ear discharge, Denies otalgia, Denies facial pain, Denies headache(s), Reports nasal congestion, Denies nasal discharge, Denies sinus pain, Denies sinus pressure and Reports sore throat Cardiovascular: Cardiovascular: Reports no additional cardiovascular complaints, Denies chest pain, Denies chest pain at rest, Denies rapid heart rate and Denies dyspnea Respiratory: Respiratory: Reports no additional respiratory complaints, Denies chest congestion, Denies cough, Denies pain on inspiration, Denies pain with cough and Denies dyspnea Gastrointestinal: Gastrointestinal: Denies abdominal pain, Denies diarrhea, Denies nausea and Denies vomiting Integumentary/Breasts: Skin/Breast: Denies rash Neurologic: Reports system reviewed and no additional complaints, except as documented, Denies vertigo, Denies dizziness and Denies headache(s) Endocrine: Endocrine: Denies fatigue [facility] Past Medical History Medical History Ectopic Surgical History Surgical History History of cholecystectomy History of gynecologic surgery 02/28/2023- Diagnostic laparoscopy, left ovarian cystectomy, lysis of adhesions, fulguration of endometrial implants, abdominal wall biopsy, and chromopertubation History of tonsillectomy and adenoidectomy S/P laparoscopic surgery 05/2023 Family History Family History Mother Endometriosis Other Thyroid disease Social History Social History Smoking status: Never smoker Alcohol intake: never Substance use: never Substance use type: does not use Do You Feel Safe in your Home?: Yes Lack of Transportation: No Lack of Food: Never True Current Housing: I Have Housing Concerned About Future Housing: No Difficulty Paying Gas/Electric Bills: No Difficulty Paying for Meds: No Currently Unemployed: No Education: High School Diploma/GED Living arrangements: with family Occupation/Education: occupation Additional occupation/education comments: stay at home Gender identity (if verbalized by the patient): Female Sexual Orientation (if Verbalized by the Patient): Straight or Heterosexual Spiritual care concerns: No Comments At the time of my signature, I reviewed and agree with the nursing past medical, surgical, social, and family history. There is no relevant famil
[2023-11-09 16:28] VITALS: BP 139/82; PULSE 88; RESP 16; TEMP 37.2; O2SAT 100
== END 2023-11-09 16:49 | disposition home or self-care (01) ==
PROVIDERS: Emergency Provider Registered Nurse; PCP Nurse Practitioner Family
DX: O98.511 Other viral diseases complicating pregnancy, first trimester (principal); B34.9 Viral infection, unspecified; Z3A.09 9 weeks gestation of pregnancy; Z20.822 Contact with and (suspected) exposure to COVID-19
CPT/HCPCS: 87081; 87426; 87804; 87880; 99213; G0463

== ENCOUNTER 2024-02-20 14:27 | Outpatient (CLI) | payer OTHER, SELFPAY ==
[2024-02-20 14:59] LABS: Basophils Percent Auto 0.3 % (0.2-1.2); Eosinophils Absolute Auto 0.1 K/mm3 (0-0.3); Eosinophils Percent Auto 1.6 % (0-4.4); Hematocrit 36.9 % (37.0-47.0); Hemoglobin 12.2 g/dL (12.0-15.0); Immature Granulocyte Absolute 0.04 K/mm3 (0.00-0.031); Immature Granulocyte Percent A 0.5 % (0-0.5); Lymphocytes Absolute Auto 1.34 K/mm3 (0.9-3.2); Lymphocytes Percent Auto 15.2 % (18.3-44.2); Mean Corpuscular HGB Conc 33.1 g/dl (32-36); Mean Corpuscular Hemoglobin 28.6 pg (26-34); Mean Corpuscular Volume 86.6 fl (80-100); Mean Platelet Volume 9.8 fl (7.4-10.4); Monocytes Absolute Auto 0.5 K/mm3 (0.1-0.6); Monocytes Percent Auto 6.1 % (2.6-8.5); Neutrophils Absolute Auto 6.7 K/mm3 (1.3-6.7); Neutrophils Percent Auto 76.3 % (45.5-73.1); Platelet Count Result 283 k/mm3 (150-375); Red Blood Count 4.26 M/mm3 (4.2-5.4); Red Cell Distribution Width 12.6 % (11.5-14.5); White Blood Count 8.8 K/mm3 (4.5-10.0)
[2024-02-20 15:12] LABS: Alanine Aminotransferase 14 U/L (6-35); Albumin Level 3.8 g/dL (3.5-5.1); Alkaline Phosphatase 59 U/L (38-126); Anion Gap 5 mmol/L (4-12); Aspartate Amino Transferase 20 U/L (14-36); Bilirubin,Total 0.3 mg/dL (0.2-1.3); Blood Urea Nitrogen 7 mg/dL (7-17); Calcium 8.7 mg/dL (8.4-10.2); Carbon Dioxide 22 mmol/L (22-30); Chloride 107 mmol/L (98-107); Estimated Glomerular Filt Rate > 60; Glucose 142 mg/dL (65-110); Potassium 3.5 mmol/L (3.4-5.0); Sodium 134 mmol/L (137-145)
== END 2024-02-20 14:28 | disposition home or self-care (01) ==
LOC: ANHLAB 14:28
PROVIDERS: PCP Nurse Practitioner Family; Visit Provider Obstetrics & Gynecology
DX: O16.2 Unspecified maternal hypertension, second trimester (principal); Z3A.00 Weeks of gestation of pregnancy not specified
CPT/HCPCS: 36415; 80053; 85025

== ENCOUNTER 2024-02-21 17:13 | Outpatient (CLI) | payer OTHER, SELFPAY ==
[2024-02-21 19:05] LABS: Creatinine Urine 85.9 mg/dL; Total Protein Urine Random 6 mg/dL
[2024-02-21 19:06] LABS: Total Protein Urine 24 Hr 114 mg/24hr (28-141); Total Volume 24 Hour Urine 1900 ml
[2024-02-21 19:07] LABS: Creatinine 24 Hour Urine 1.6 gm/24 (0.8-1.8); Total Volume 24 Hour Urine 1900 ml
== END 2024-02-21 17:14 | disposition home or self-care (01) ==
LOC: ANHLAB 17:14
PROVIDERS: PCP Nurse Practitioner Family; Visit Provider Obstetrics & Gynecology
DX: O16.2 Unspecified maternal hypertension, second trimester (principal); Z3A.00 Weeks of gestation of pregnancy not specified
CPT/HCPCS: 81050; 82570; 84156

== ENCOUNTER 2024-03-14 08:13 | Outpatient (CLI) | payer OTHER, SELFPAY ==
[2024-03-14 10:03] LABS: Glucose 1 Hour PP 50gm Dose 138 mg/dL
[2024-03-14 10:40] LABS: HIV 1/2 Ab P24 Ag Result Negative (Negative)
[2024-03-15 14:38] LABS: Rapid Plasma Reagin Non-Reactive (NonReactive)
== END 2024-03-14 08:14 | disposition home or self-care (01) ==
LOC: ANHLAB 08:14
PROVIDERS: PCP Nurse Practitioner Family; Visit Provider Obstetrics & Gynecology
DX: Z34.90 Encounter for supervision of normal pregnancy, unspecified, unspecified trimester (principal); Z3A.00 Weeks of gestation of pregnancy not specified
CPT/HCPCS: 36415; 82947; 86592; 86703; G0432

== ENCOUNTER 2024-03-16 07:51 | Outpatient (CLI) | payer OTHER, SELFPAY ==
[2024-03-16 08:22] LABS: Glucose Fasting Gestational 83 mg/dL (>/=95)
[2024-03-16 10:03] LABS: Glucose 1 Hour Gest 168 mg/dL (>/=180)
[2024-03-16 10:39] LABS: Glucose 2 Hour Gest 142 mg/dL (>/= 155)
[2024-03-16 11:55] LABS: Glucose 3 Hour Gest 113 mg/dL (>/=140)
== END 2024-03-16 07:52 | disposition home or self-care (01) ==
PROVIDERS: PCP Nurse Practitioner Family; Visit Provider Obstetrics & Gynecology
DX: R73.09 Other abnormal glucose (principal)
CPT/HCPCS: 36415; 82951; 82952

== ENCOUNTER 2024-05-17 16:16 | Outpatient (RCR) | payer OTHER, SELFPAY ==
[2024-04-19 16:35] VITALS: BP 110/63; PULSE 80
[2024-04-26 16:18] VITALS: BP 125/67; PULSE 85
[2024-05-03 16:21] VITALS: BP 129/76; PULSE 79
[2024-05-10 16:44] VITALS: BP 124/75; PULSE 78
[2024-05-10 16:48] LABS: Basophils Percent Auto 0.2 % (0.2-1.2); Eosinophils Absolute Auto 0.1 K/mm3 (0-0.3); Eosinophils Percent Auto 1.2 % (0-4.4); Hematocrit 37.8 % (37.0-47.0); Hemoglobin 12.8 g/dL (12.0-15.0); Immature Granulocyte Absolute 0.06 K/mm3 (0.00-0.031); Immature Granulocyte Percent A 0.7 % (0-0.5); Lymphocytes Absolute Auto 1.54 K/mm3 (0.9-3.2); Lymphocytes Percent Auto 17.4 % (18.3-44.2); Mean Corpuscular HGB Conc 33.9 g/dl (32-36); Mean Corpuscular Hemoglobin 29.4 pg (26-34); Mean Corpuscular Volume 86.9 fl (80-100); Mean Platelet Volume 10.1 fl (7.4-10.4); Monocytes Absolute Auto 0.7 K/mm3 (0.1-0.6); Monocytes Percent Auto 7.9 % (2.6-8.5); Neutrophils Absolute Auto 6.4 K/mm3 (1.3-6.7); Neutrophils Percent Auto 72.6 % (45.5-73.1); Platelet Count Result 242 k/mm3 (150-375); Red Blood Count 4.35 M/mm3 (4.2-5.4); Red Cell Distribution Width 12.7 % (11.5-14.5); White Blood Count 8.9 K/mm3 (4.5-10.0)
[2024-05-10 16:50] LABS: Add Urine Microscopic? NO; Appearance Urine Clear (Clear); Bilirubin Urine Negative (Negative); Blood Urine Negative (Negative); Color Urine Yellow (Yellow); Glucose Urine UA Negative (Negative); Ketones Urine Negative (Negative); Leukocyte Esterase Ur Negative LEU/UL (Negative); Nitrate Urine Negative (Negative); Protein Urine Negative (Negative); Specific Grav Ur 1.012 (1.001-1.035); Urobilinogen Urine 0.2 mg/dL (<2.0)
[2024-05-10 16:58] LABS: Alanine Aminotransferase 14 U/L (6-35); Albumin Level 3.7 g/dL (3.5-5.1); Alkaline Phosphatase 112 U/L (38-126); Anion Gap 9 mmol/L (4-12); Aspartate Amino Transferase 22 U/L (14-36); Bilirubin,Total 0.1 mg/dL (0.2-1.3); Blood Urea Nitrogen 9 mg/dL (7-17); Calcium 8.9 mg/dL (8.4-10.2); Carbon Dioxide 21 mmol/L (22-30); Chloride 103 mmol/L (98-107); Estimated Glomerular Filt Rate > 60; Glucose 83 mg/dL (65-110); Lactate Dehydrogenase 151 U/L (120-246); Sodium 133 mmol/L (137-145); Uric Acid 4.4 mg/dL (2.5-7.5)
[2024-05-10 17:27] LABS: Total Protein Urine Random 9 mg/dL
[2024-05-10 17:30] LABS: Creatinine Urine 76.9 mg/dL; Ur Ttl Prot Creatinine Ratio 0.12 mg/mg (0-0.20)
[2024-05-17 17:03] VITALS: BP 125/75; PULSE 90
== END 2024-07-18 23:59 | disposition home or self-care (01) ==
LOC: ANHOBOP 16:16
PROVIDERS: PCP Nurse Practitioner Family; Visit Provider Obstetrics & Gynecology
DX: O16.3 Unspecified maternal hypertension, third trimester (principal); Z3A.33 33 weeks gestation of pregnancy; Z3A.34 34 weeks gestation of pregnancy; Z3A.35 35 weeks gestation of pregnancy; Z3A.36 36 weeks gestation of pregnancy; Z3A.37 37 weeks gestation of pregnancy
CPT/HCPCS: 36415; 59025; 80053; 81003; 82570; 83615; 84156; 84550; 85025

== ENCOUNTER 2024-05-21 16:53 | Inpatient (IN) | payer OTHER, SELFPAY ==
[2024-05-21] VITALS (14 sets, daily range): BP systolic 130–150; BP diastolic 66–87; PULSE 66–82; TEMP 36.6; BMI 31.1
[2024-05-21 17:38] LABS: Basophils Percent Auto 0.4 % (0.2-1.2); Eosinophils Absolute Auto 0.1 K/mm3 (0-0.3); Eosinophils Percent Auto 0.8 % (0-4.4); Hematocrit 35.6 % (37.0-47.0); Hemoglobin 12.4 g/dL (12.0-15.0); Immature Granulocyte Absolute 0.04 K/mm3 (0.00-0.031); Immature Granulocyte Percent A 0.5 % (0-0.5); Lymphocytes Absolute Auto 1.46 K/mm3 (0.9-3.2); Lymphocytes Percent Auto 17.1 % (18.3-44.2); Mean Corpuscular HGB Conc 34.8 g/dl (32-36); Mean Corpuscular Hemoglobin 30.1 pg (26-34); Mean Corpuscular Volume 86.4 fl (80-100); Mean Platelet Volume 10.3 fl (7.4-10.4); Monocytes Absolute Auto 0.5 K/mm3 (0.1-0.6); Monocytes Percent Auto 5.8 % (2.6-8.5); Neutrophils Absolute Auto 6.5 K/mm3 (1.3-6.7); Neutrophils Percent Auto 75.4 % (45.5-73.1); Platelet Count Result 235 k/mm3 (150-375); Red Blood Count 4.12 M/mm3 (4.2-5.4); Red Cell Distribution Width 12.6 % (11.5-14.5); White Blood Count 8.6 K/mm3 (4.5-10.0)
[2024-05-21 18:12] LABS: Alanine Aminotransferase 16 U/L (6-35); Albumin Level 3.5 g/dL (3.5-5.1); Alkaline Phosphatase 135 U/L (38-126); Anion Gap 10 mmol/L (4-12); Aspartate Amino Transferase 30 U/L (14-36); Bilirubin,Total 0.2 mg/dL (0.2-1.3); Blood Urea Nitrogen 10 mg/dL (7-17); Calcium 8.9 mg/dL (8.4-10.2); Carbon Dioxide 18 mmol/L (22-30); Chloride 106 mmol/L (98-107); Estimated Glomerular Filt Rate > 60; Glucose 125 mg/dL (65-110); Potassium 3.8 mmol/L (3.4-5.0); Sodium 134 mmol/L (137-145); Uric Acid 5.5 mg/dL (2.5-7.5)
[2024-05-21 18:28] LABS: HIV 1/2 Ab P24 Ag Result Negative (Negative)
[2024-05-21] MEDS: DINOPROSTONE 10 MG VAG INSERT VAGINAL (18:40)
--- NOTE | 2024-05-21 18:47 | LDADM ---
This patient, Yoanna Mckee, was admitted to Labor/Delivery/Recovery 108 on 05/21/24 at 16:53. Plans for labor, pain management and were discussed with patient. Patient/family oriented to hospital policies and general routines including ID bracelet, bed and alarms, visiting hours, pain management, procedures, bathroom and other care routines, personal items, smoking policy, room service/diet and guest tray routines, security routines, and visiting hours. Patient/Family are encouraged to report perceived risks to care and to ask questions if they do not understand what they are told or what they should do. See OBIX for further documentation.
[2024-05-21 19:27] LABS: Rapid Plasma Reagin Non-Reactive (NonReactive)
[2024-05-22] VITALS (88 sets, daily range): BP systolic 108–154; BP diastolic 52–97; PULSE 34–135; RESP 18; TEMP 36.6–38.7; O2SAT 82–100
--- NOTE | 2024-05-22 07:18 | PM.IMHP ---
H&P: HPI History of Present Illness Date/Time: 05/22/24 07:13 Chief Complaint: Medical IOL for gestational hypertension Narrative: Yoanna is a 28yo @ 37.5wks who presented last night for medical IOL due to GHTN. She has been undergoing testing and monitoring by [facility] as well. She received Cervidil overnight. She reports good movement. No VB or LOF. She denies symptoms of severe pre-eclampsia. Her blood pressures have been in the normal to mild range. Labs stable. Her is complicated by: - h/o ectopic x1 s/p MTX - Endometriosis (confirmed surgically; has had 2 surgeries) - Parvo/CMV/varicella non-immune - Fam h/o PEC-- on ASA - GHTN-- q4wk growths/TANYA, NST/BPP weekly @ 32wks, delivery @ 37wks. - Elevated 1 hour, normal 3 hour - LGA fetus; AC/BPD >99%ile, EFW >97%ile Review of Systems Constitutional: Constitutional: Denies chills, Denies fever(s) and Denies headache(s) Eyes: Eyes: Denies change in vision ENT: Denies headache(s) Cardiovascular: Cardiovascular: Denies chest pain and Denies dyspnea Respiratory: Respiratory: Denies dyspnea Genitourinary: Genitourinary: Denies abnormal vaginal bleeding and Denies vaginal discharge Neurologic: Denies headache(s) Psychiatric: Psychiatric: Denies anxiety and Denies depression [facility] Past Medical History Medical History Ectopic Surgical History Surgical History History of cholecystectomy History of gynecologic surgery 02/28/2023- Diagnostic laparoscopy, left ovarian cystectomy, lysis of adhesions, fulguration of endometrial implants, abdominal wall biopsy, and chromopertubation History of tonsillectomy and adenoidectomy S/P laparoscopic surgery 05/2023 Family History Family History Mother Endometriosis Thyroid disease Mother No problems noted. Social History Social History Smoking status: Never smoker Alcohol intake: never Substance use: never Substance use type: does not use Do You Feel Safe in your Home?: Yes Lack of Transportation: No Lack of Food: Never True Current Housing: I Have Housing Concerned About Future Housing: No Difficulty Paying Gas/Electric Bills: No Difficulty Paying for Meds: No Currently Unemployed: No Education: High School Diploma/GED Difficulty w/ Childcare or Family Care: No Living arrangements: with family Occupation/Education: occupation Additional occupation/education comments: stay at home Gender identity (if verbalized by the patient): Female Sexual Orientation (if Verbalized by the Patient): Straight or Heterosexual Spiritual care concerns: No Meds Home Medications and Allergies Home Medications Medication Instructions Recorded Confirmed Type [id number]-FA 1 mg 1 tablet PO DAILY 02/21/23 05/15/24 History tablet aspirin 81 mg tablet,delayed 162 mg PO DAILY 12/26/23 05/15/24 History release (Adult Aspirin Regimen) docusate sodium 100 mg capsule 100 mg PO DAILY 01/23/24 05/15/24 History (Colace) magnesium oxide 400 mg PO DAILY 01/23/24 05/15/24 History riboflavin (vitamin B2) 25 mg 25 mg PO DAILY 01/23/24 05/15/24 History tablet Allergies Allergy/AdvReac Type Severity Reaction Status Date / Time No Known Allergies Allergy Verified 05/15/24 08:12 Vital Signs Vital Signs - 24 hr 05/21/24 17:47 05/21/24 18:01 05/21/24 18:15 Temperature Pulse Rate 82 77 77 Blood Pressure 130/87 132/66 135/81 05/21/24 18:31 05/21/24 18:46 05/21/24 19:01 Temperature Pulse Rate 78 72 77 Blood Pressure 147/84 H 146/73 H 138/77 05/21/24 19:16 05/21/24 19:31 05/21/24 19:46 Temperature Pulse Rate 69 73 74 Blood Pressure 150/73 H 142/79 H 150/76 H 05/21/24 20:01 05/21/24
[2024-05-22] MEDS: LACTATED RINGERS 1,000 ML 125 ML IV CONT ×2 (07:32→10:11)
[2024-05-22] MEDS: OXYTOCIN 30 UNITS/NS 500 ML 30 UNITS/500 ML BAG 6 UNITS IV CONT (07:32)
--- NOTE | 2024-05-22 07:46 | WPDANESEPP ---
Anes - Eval Pre Procedure Procedure: Labor epidural Date/Time: 05/22/24 07:46 Surgeon: Austin Preop Diagnosis: Pain during labor Pre Op Diagnosis: Induction of Labor Patient Data Age: 28 Gender: F Height: 1.7 m Weight: 90 kg Last Vital Signs Temp 36.6 C 05/22/24 04:01 Pulse 83 05/22/24 07:01 BP 127/69 05/22/24 07:01 Allergies Allergy/AdvReac Type Severity Reaction Status Date / Time No Known Allergies Allergy Verified 05/15/24 08:12 Home Medications Medication Instructions Recorded Confirmed Type [id number]-[id number]-[id number] 1 mg 1 tablet PO DAILY 02/21/23 05/15/24 History tablet aspirin 81 mg tablet,delayed 162 mg PO DAILY 12/26/23 05/15/24 History release (Adult Aspirin Regimen) docusate sodium 100 mg capsule 100 mg PO DAILY 01/23/24 05/15/24 History (Colace) magnesium oxide 400 mg PO DAILY 01/23/24 05/15/24 History riboflavin (vitamin B2) 25 mg 25 mg PO DAILY 01/23/24 05/15/24 History tablet Laboratory Tests 05/21/24 05/21/24 17:11 17:44 WBC 8.6 K/mm3 (4.5-10.0) RBC 4.12 L M/mm3 (4.2-5.4) Hgb 12.4 g/dL (12.0-15.0) Hct 35.6 L % (37.0-47.0) MCV 86.4 fl (80-100) MCH 30.1 pg (26-34) MCHC 34.8 g/dl (32-36) RDW 12.6 % (11.5-14.5) Plt Count 235 k/mm3 (150-375) MPV 10.3 fl (7.4-10.4) Immature Gran % (Auto) 0.5 % (0-0.5) Neut % (Auto) 75.4 H % (45.5-73.1) Lymph % (Auto) 17.1 L % (18.3-44.2) Collin % (Auto) 5.8 % (2.6-8.5) Eos % (Auto) 0.8 % (0-4.4) Baso % (Auto) 0.4 % (0.2-1.2) Lymph # (Auto) 1.46 K/mm3 (0.9-3.2) Collin # (Auto) 0.5 K/mm3 (0.1-0.6) Eos # (Auto) 0.1 K/mm3 (0-0.3) Baso # (Auto) 0.0 K/mm3 (0.0-0.1) Abs Immat Gran (auto) 0.04 H K/mm3 (0.00-0.031) Absolute Neuts (auto) 6.5 K/mm3 (1.3-6.7) Absolute Nucleated RBC 0.000 K/mm3 (0.0-0.012) Nucleated RBC % 0.0 % (0.0-0.2) Sodium 134 L mmol/L (137-145) Potassium 3.8 mmol/L (3.4-5.0) Chloride 106 mmol/L (98-107) Carbon Dioxide 18 L mmol/L (22-30) Anion Gap 10 mmol/L (4-12) BUN 10 mg/dL (7-17) Creatinine 0.50 L mg/dL (0.7-1.0) Estim Creat Clear Calc Not Reportable Estimated GFR > 60 (59 - ) Glucose 125 H mg/dL (65-110) Uric Acid 5.5 mg/dL (2.5-7.5) Calcium 8.9 mg/dL (8.4-10.2) Total Bilirubin 0.2 mg/dL (0.2-1.3) AST 30 U/L (14-36) ALT 16 U/L (6-35) Alkaline Phosphatase 135 H U/L (38-126) Total Protein 7.0 g/dL (6.3-8.2) Albumin 3.5 g/dL (3.5-5.1) RPR Non-reactive (NonReactive) HIV 1&2 Ab/P24 Ag 4thGn Negative (Negative) Blood Type A Positive Antibody Screen Negative Patient hx anesthesia problems: none Family hx anesthesia problems: none Results Review: All pre-operative results and documents have been reviewed as part of the pre-operative evaluation. COUNTS INCLUDE 234 BEDS AT THE [facility] Past Medical History Medical History Ectopic Surgical History Surgical History History of cholecystectomy History of gynecologic surgery 02/28/2023- Diagnostic laparoscopy, left ovarian cystectomy, lysis of adhesions, fulguration of endometrial implants, abdominal wall biopsy, and chromopertubation History of tonsillectomy and adenoidectomy S/P laparoscopic surgery 05/2023 Family History Family History Mother Endometriosis Thyroid disease Mother No problems noted. Social History Social History Smoking status: Never smoker Alcohol intake: never Substance use: never Substance use type:
[2024-05-22] MEDS: AMPICILLIN 2 GM/NS 100 ML 2 GM/100 ML BAG IVPB (17:17)
[2024-05-22] MEDS: GENTAMICIN SULFATE INJ 450 MG in DEXTROSE 5% 100 ML 111.25 MG IVPB (17:49)
[2024-05-22] MEDS: ACETAMINOPHEN 500 MG TABLET 1000 MG PO (17:51)
[2024-05-22] MEDS: miSOPROStol 200 MCG TABLET 800 MCG RECTAL (18:05)
[2024-05-22] MEDS: OXYTOCIN 30 UNITS/NS 500 ML 30 UNITS/500 ML BAG 125 UNITS IV CONT (18:17)
--- NOTE | 2024-05-22 18:23 | P.PCNOB_ITS ---
OB - Vaginal Delivery Note Procedure Delivery date: 05/22/24 Events: Gestational Hypertension Intrapartal Events: Chorioamnionitis Induction method: Per Cervidil Protocol Delivery augmentation: Rupture of Membranes and Pitocin Delivery monitor: External FHT and External Uterine Route of delivery: Episiotomy description: None Laceration Description: Perineal - 2nd Degree Delivery repair: vicryl Specimen: Yes (placenta) Quantitative Blood Loss (ml): 550 Anesthesia type: Epidural Disposition: Floor Complications: No immediate complications [place] Baby Date of : 05/22/24 Time of : 17:45 Gestational Age by Date: 37 (.5) Infant gender: Male Weight (pounds): 8 Weight (ounces): 9 presentation: vertex Placenta delivery description: Expressed Cord Vessel Description: 3 Vessels, Nuchal Cord and Loose score one minute: 8 score five minutes: 9 Narrative: Yoanna progressed to complete dilation and began pushing. She pushed for approximately 2 hours with good maternal effort. She delivered the head over intact perineum. Nuchal cord was noted but loose and delivered through. She delivered the infant's shoulders and body without complication. The was immediately placed in the skin and had spontaneous cry. Delayed cord clamping was performed. The umbilical cord was then doubly clamped and cut. A segment of the cord was collected for cord gases. The remaining cord blood was collected for typing. With Pitocin running and gentle downward traction on the cord, the placenta delivered without complication. Fundal massage was performed and good uterine tone and minimal bleeding was noted. She was examined and a second-degree perineal laceration was identified. It was repaired in the normal fashion using 2-0 Vicryl and good hemostasis was noted. Slight oozing was noted therefore bimanual massage was performed and a significant amount clots was removed uterus. Cytotec 800 mcg was placed rectally follow massage was continued. Uterus was then found be firm. Sponge, lap, instrument, and needle counts were correct at the end of the procedure. Mom and baby were left bonding in the birthing suite in stable condition. All mom was being cleaned up additional bleeding noted and another bimanual massage was performed and a small amount of clots were removed but uterus was then found to be firm with minimal bleeding. We will continue to monitor closely and continue her antibiotics for a total of 24 hours.
[2024-05-22] MEDS: IBUPROFEN 600 MG TABLET PO (19:29)
[2024-05-22] MEDS: BENZOCAINE 20% AER SPR (*SP) 56 GM CAN 1 SPRAY TOPICAL (19:29)
[2024-05-22] MEDS: WITCH HAZEL 40 PADS 1 PAD TOPICAL (19:29)
--- NOTE | 2024-05-22 20:35 | OBPPTRN ---
Patient transferred to post room #286 via wheelchair. Support person present. Oriented to unit, room, information board, rooming in, admission packet and security measures. Patient verbalizes understanding.
[2024-05-23] MEDS: AMPICILLIN 2 GM/NS 100 ML 2 GM/100 ML BAG IVPB ×3 (00:41→19:29)
[2024-05-23] MEDS: ACETAMINOPHEN 325 MG TABLET 650 MG PO ×3 (00:50→14:10)
[2024-05-23 00:52] VITALS: BP 128/65; PULSE 77; RESP 18; TEMP 37.3; O2SAT 98
[2024-05-23] MEDS: IBUPROFEN 600 MG TABLET PO ×3 (02:56→19:29)
[2024-05-23 04:53] VITALS: BP 119/67; PULSE 66; RESP 16; TEMP 36.9; O2SAT 98
[2024-05-23 06:16] LABS: Hematocrit 33.3 % (37.0-47.0); Hemoglobin 11.2 g/dL (12.0-15.0); Mean Corpuscular HGB Conc 33.6 g/dl (32-36); Mean Corpuscular Hemoglobin 29.8 pg (26-34); Mean Corpuscular Volume 88.6 fl (80-100); Platelet Count Result 207 k/mm3 (150-375); Red Blood Count 3.76 M/mm3 (4.2-5.4); Red Cell Distribution Width 12.7 % (11.5-14.5); White Blood Count 15.7 K/mm3 (4.5-10.0)
[2024-05-23] MEDS: MULTIVIT/MIN/PREN/FOL AC/IRON TABLET 1 TAB PO (06:46)
[2024-05-23] MEDS: DOCUSATE SODIUM 100 MG CAPSULE PO (06:47)
--- NOTE | 2024-05-23 07:16 | PM.OBPNVD ---
OB - PN: Subj Subjective Date/time seen: 05/23/24 07:15 Narrative: PPD#1 Yoanna reports doing well today. 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 Her pain is controlled. She is tolerating regular diet, voiding, passing gas, and ambulating without issues. She is breast feeding. She would like her son circumcised. She has been afebrile overnight. OB - PN: Obj Data Labs 05/23/24 04:55 05/21/24 17:44 OB - PN A/P Assessment and Plan (1) Normal vaginal delivery: Code(s): O80 - Encounter for full-term uncomplicated delivery Status: Acute (2) Gestational hypertension: Qualifiers: Trimester: third trimester Qualified Code(s): O13.3 - Gestational [-induced] hypertension without significant proteinuria, third trimester Code(s): O13.9 - Gestational [-induced] hypertension without significant proteinuria, unspecified trimester Status: Acute (3) Chorioamnionitis: Qualifiers: Fetus number: single or unspecified fetus Trimester: third trimester Qualified Code(s): O41.1230 - Chorioamnionitis, third trimester, not applicable or unspecified Code(s): O41.1290 - Chorioamnionitis, unspecified trimester, not applicable or unspecified Status: Acute Plan day: 1 Plan: routine care Comments: - 24 hours of IV antibiotics - PO pain meds - Regular diet - Ambulation and hydration encouraged - Continue putting baby to breast q2-3hr Time Spent With Patient Time: Total time spent is greater than 50% in coordination of care (as documented) at patient's floor/unit and/or counseling patient: Review of Systems Constitutional: Constitutional: Denies chills, Denies fever(s) and Denies headache(s) Eyes: Eyes: Denies change in vision ENT: Denies dizziness and Denies headache(s) Cardiovascular: Cardiovascular: Denies chest pain, Denies palpitations and Denies dyspnea Respiratory: Respiratory: Denies cough and Denies dyspnea Gastrointestinal: Gastrointestinal: Denies nausea and Denies vomiting Neurologic: Denies dizziness and Denies headache(s) Endocrine: Endocrine: Denies palpitations Exam Const: General: cooperative, comfortable and no acute distress Orientation/consciousness: patient oriented x3 Resp: Effort & Inspection: normal respiratory effort Auscultation: clear to auscultation bilaterally Cardio: Rate: regular rate GI: Inspection: non-distended GI Palp: No abdominal tenderness and Yes Soft to palpation Auscultation: normal bowel sounds : Other: fundus firm Skin: General skin exam: normal color Neuro: General: patient oriented x3 Extrem: General: normal to inspection Psych: Appearance: grossly normal Affect: normal affect Attitude: cooperative
[2024-05-23 08:10] VITALS: BP 113/80; PULSE 78; RESP 16; TEMP 36.4; O2SAT 97
--- NOTE | 2024-05-23 08:36 | PC.NURSE ---
0630 Introductions were made, then consulted with patient to assess needs related to . Mother led the conversation with her?plans to feed?her infant and the?experience so far. Encouraged understanding of the benefits of skin to skin (demonstrating unwrapping infant and placing upright on her chest), stimulating with massage touch, changing positions to encourage wakefulness, how to watch for early feeding cues, responsive feeding, feeding on demand (aiming for 8-12 times in 24 hours, about every 2-3 hours), milk production, building/maintaining a milk supply, duration of feeding, signs of adequate intake/output and how to record on the feeding sheet. RN unwrapped baby and baby was placed skin to skin with mother in the upright position, she works well with her infant with encouragement and education. RN to return in 15-20 mins while mother watches for feeding cues. Per the Primary RN, baby has had a few attempts at breast but no successful feeding in life, RN to also talk with the personal lines underwriter to discuss plan. 0645 RN returned and Primary RN in room getting vital signs on baby and completing baby's assessment, Dr. Fox, personal lines underwriter, would like to assess baby in the nursery. RN to also discuss feeding plan with MD. [address] Baby in nursery with Dr. Dominique MD advised of feeding attempts so far, blood glucose checks WNL. Asphalt Tile Floor Layer recommends 15-15-15 feeding plan. RN to discuss with mother and Primary RN. 0710 Mother had baby skin to skin and baby started to show feeding cues. RN discussed with parents that the personal lines underwriter recommends the 15-15-15 feeding plan, parents agreed. Reviewed positioning and ear, shoulder, hip alignment, supporting the breast to facilitate a deep latch, asymmetrical latch (off-center), leading with the chin with a big, open, wide gape and body close to mother. 0718 latched optimally to the right breast in cross cradle position but would not suck and maintain that latch. Education given to the mother of how to visualize the suckling (with good rocking jaw motion), swallows (dropping of the lower jaw) and how to listen for drinking at the breast (the ka sound). Reviewed comfort measures of healing with a warm, wet washcloth to rinse breast, then leave open to air-dry, good handwashing when or touching the breast/nipples to prevent infection. Mother voiced understanding of skin to skin, stimulating with massage touch, responsive feedings, hand expressed colostrum, talking to infant to encourage if it has been 2 -2.5 hours since the start of the last , to call if does not latch, or if there is discomfort with . Resources used for education were facilitated with the visual educational handouts, Inpatient resources provided, feeding sheet, name written on the communication board, and the mom/baby guide. Parents voiced understanding of information, demonstrated learning and will call if there is a request for assistance. 0730 Parents shown paced bottle feeding and RN to help mother set up her own Medela pump. Mother's nipples measured, both were 20mm, which per Medela pump instructions she would use a 24 size flange. 0745 RN started baby out feeding a formula bottle to demonstrate to parents, dad then took over and baby took 17mls of Similac formula. Reported to the Primary RN. 0753 RN helped mother set up own breast pump and she pumped for 15 mins, both breasts, she pumped 3.5mls of colostrum, which will be given to baby for the next feeding. Mother given instructions on how often to use breast pump and how to clean the parts and pieces. Mother advised to watch for feeding cues in the next 2-3 hours for the next feed. Note copied and placed in baby's chart
--- NOTE | 2024-05-23 10:04 | WPDANLDPN2 ---
Anes-Prog Note L&D Date/Time: 05/23/24 10:04 Comfortable throughout: labor and delivery Neuraxial method: epidural Epidural/Spinal procedure site: clean & non-tender Neuro status: Neuro function grossly intact. Cardiovascular status: normal Respiratory status: normal Airway patency: baseline Mental status: baseline Post-Op hydration status: normal Vital Signs: Last Vital Signs Temp 36.4 C L 05/23/24 08:10 Pulse 78 05/23/24 08:10 Resp 16 05/23/24 08:10 BP 113/80 05/23/24 08:10 Pulse Ox 97 05/23/24 08:10 O2 Del Method Room Air 05/23/24 08:00 Pain score (VAS): 09/28 I/O: Intake & Output 05/22/24 05/23/24 05/23/24 23:59 07:59 15:59 Intake Total 500 680 140 Output Total 550 1100 Balance -50 -420 140 Post-procedural complaints: none Patient feedback: Patient satisfied with anesthetic care.
[2024-05-23 12:06] VITALS: BP 117/69; PULSE 73; RESP 16; TEMP 36.6; O2SAT 97
[2024-05-23 16:10] VITALS: BP 124/77
[2024-05-23 20:05] VITALS: BP 123/75; PULSE 78; RESP 18; TEMP 36.8; O2SAT 97
[2024-05-24] MEDS: ACETAMINOPHEN 325 MG TABLET 650 MG PO (00:10)
--- NOTE | 2024-05-24 07:12 | PM.OBDSVD ---
DS: Admitting Diagnosis Discharge Date 05/24/24 Admitting Diagnosis Induction of labor Gestational hypertension DS: Discharge Diagnosis Discharge Diagnosis (1) Normal vaginal delivery: Code(s): O80 - Encounter for full-term uncomplicated delivery Status: Acute (2) Gestational hypertension: Qualifiers: Trimester: third trimester Qualified Code(s): O13.3 - Gestational [-induced] hypertension without significant proteinuria, third trimester Code(s): O13.9 - Gestational [-induced] hypertension without significant proteinuria, unspecified trimester Status: Acute (3) Chorioamnionitis: Qualifiers: Fetus number: single or unspecified fetus Trimester: third trimester Qualified Code(s): O41.1230 - Chorioamnionitis, third trimester, not applicable or unspecified Code(s): O41.1290 - Chorioamnionitis, unspecified trimester, not applicable or unspecified Status: Acute OB - DS: Summary OB Procedures : NST, PIH Mgmt and Ultrasound OB Procedures Intrapartum: Spontaneous Vag Delivery OB Procedures: : Antibiotics Peripartum Data Infant Delivery Method: Natural Vaginal Laceration Description: Perineal - 2nd Degree Episiotomy description: None complications: none [place] 1: Gender: Male Disposition of : home Status at Discharge Functional status at discharge: independent ambulation Overall status at discharge: patient is back to baseline Time Spent with Patient Time attestation: Total time spent providing and/or coordinating discharge services: Exam Const: General: cooperative, healthy appearing, comfortable and no acute distress Nutritional Appearance: obese Orientation/consciousness: patient oriented x3 Resp: Effort & Inspection: normal respiratory effort Auscultation: clear to auscultation bilaterally Cardio: Rate: regular rate GI: Inspection: non-distended GI Palp: No abdominal tenderness and Yes Soft to palpation Auscultation: normal bowel sounds : Other: fundus firm Skin: General skin exam: normal color Neuro: General: patient oriented x3 Extrem: General: normal to inspection Psych: Appearance: grossly normal Affect: normal affect Attitude: cooperative DS: Data Data Completed and Pending Pending studies at discharge: Pending at discharge 05/22/24 18:20 Surgical [PTH] Routine Labs on day of discharge: Labs from last 24 hours 05/23/24 04:55 WBC 15.7 H RBC 3.76 L Hgb 11.2 L Hct 33.3 L MCV 88.6 MCH 29.8 MCHC 33.6 RDW 12.7 Plt Count 207 MPV 11.0 H Discharge Plan Discharge Attending physician on discharge: Debbie Avila Discharging Clinician: Debbie Avila Anticipated Discharge Date/Time: 05/24/24 14:00 Patient Disposition: Home, Self-Care Activity: may shower and pelvic rest Diet: regular Discharge Instructions: Education: Mom and Baby Guide Given to: Mother Follow-Up: Call your delivering provider's office for an appointment to be seen in: 4 Weeks Mom and baby should come to the [facility] for the follow-up appointment. Appointment Date/Time: May 25, 2024 at 1:30 pm What to expect at your follow-up visit: Blood Pressure Check Physical Assessment Call [phone] if you are unable to keep your appointment time. BREAST CARE: * Wear a snug supportive bra. * For engorgement discomfort: Breast Feeding: * Apply warm moist washcloths * Express milk as needed to relieve engorgement * Wear loose clothing * For sore nipples: * Identify correct latch-on * Apply warm moist washcloths before and after nursing * Air dry nipples after nursing * May apply Lansinoh cream to nipples EPISIOTOMY/PERINEAL CARE: * Until bleeding stops, use your asiya bottle after urinating * Change your pad frequently throughout the
--- NOTE | 2024-05-24 07:12 | PM.OBPNVD ---
OB - PN: Subj Subjective Date/time seen: 05/24/24 07:26 Narrative: PPD#2 Yoanna reports doing well today. 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 Her pain is controlled. She is tolerating regular diet, voiding, passing gas, and ambulating without issues. She is breast feeding and supplementing. She would like her son circumcised. She would like to go home today. OB - PN: Obj Data Labs 05/23/24 04:55 05/21/24 17:44 Labs: Laboratory Results - last 24 hr 05/23/24 04:55 WBC 15.7 H RBC 3.76 L Hgb 11.2 L Hct 33.3 L MCV 88.6 MCH 29.8 MCHC 33.6 RDW 12.7 Plt Count 207 MPV 11.0 H OB - PN A/P Assessment and Plan (1) Gestational hypertension: Qualifiers: Trimester: third trimester Qualified Code(s): O13.3 - Gestational [-induced] hypertension without significant proteinuria, third trimester Code(s): O13.9 - Gestational [-induced] hypertension without significant proteinuria, unspecified trimester Status: Acute (2) Normal vaginal delivery: Code(s): O80 - Encounter for full-term uncomplicated delivery Status: Acute (3) Chorioamnionitis: Qualifiers: Fetus number: single or unspecified fetus Trimester: third trimester Qualified Code(s): O41.1230 - Chorioamnionitis, third trimester, not applicable or unspecified Code(s): O41.1290 - Chorioamnionitis, unspecified trimester, not applicable or unspecified Status: Acute Plan day: 2 Plan: routine care Comments: - s/p 24 hours of antibiotics - PO pain meds - Regular diet - Ambulation and hydration encouraged - Continue putting baby to breast q2-3hr - BPs in normal range , pt asymptomatic - Pelvic rest; take meds as prescribed - ER return precautions: fever, n/v/abd pain, bleeding, HTN - Circ performed without issue Time Spent With Patient Time: Total time spent is greater than 50% in coordination of care (as documented) at patient's floor/unit and/or counseling patient: Review of Systems Constitutional: Constitutional: Denies chills, Denies fever(s) and Denies headache(s) Eyes: Eyes: Denies change in vision ENT: Denies dizziness and Denies headache(s) Cardiovascular: Cardiovascular: Denies chest pain, Denies palpitations and Denies dyspnea Respiratory: Respiratory: Denies cough and Denies dyspnea Gastrointestinal: Gastrointestinal: Denies nausea and Denies vomiting Neurologic: Denies dizziness and Denies headache(s) Endocrine: Endocrine: Denies palpitations Exam Const: General: cooperative, healthy appearing, comfortable, no acute distress and obese Orientation/consciousness: patient oriented x3 Resp: Effort & Inspection: normal respiratory effort Auscultation: clear to auscultation bilaterally Cardio: Rate: regular rate GI: Inspection: non-distended GI Palp: No abdominal tenderness and Yes Soft to palpation Auscultation: normal bowel sounds : Other: fundus firm Skin: General skin exam: normal color Neuro: General: patient oriented x3 Extrem: General: normal to inspection Psych: Appearance: grossly normal Affect: normal affect Attitude: cooperative
[2024-05-24 08:00] VITALS: BP 120/79; PULSE 69; RESP 16; TEMP 36.4
[2024-05-24] MEDS: WITCH HAZEL 40 PADS 1 PAD TOPICAL (08:01)
[2024-05-24] MEDS: MULTIVIT/MIN/PREN/FOL AC/IRON TABLET 1 TAB PO (08:01)
[2024-05-24] MEDS: DOCUSATE SODIUM 100 MG CAPSULE PO (08:01)
[2024-05-24] MEDS: IBUPROFEN 600 MG TABLET PO (08:01)
[2024-05-24] MEDS: BENZOCAINE 20% AER SPR (*SP) 56 GM CAN 1 SPRAY TOPICAL (08:01)
--- NOTE | 2024-05-24 09:40 | PC.NURSE ---
Mother remains independent with pumping and feeding . Currently, parents are using the [id number] feeding plan which will be continued after discharge. Mother had questions regarding discontinuing the feeding plan. Discussed with mother that she should continue with the current feeding plan until she visits the infants PCP ([facility]) for follow up and PCP will be able to reevaluate her feeding plan depending on the infants weight gain. Mother is no longer attempting to put to breast and is independently pumping and feeding infant breast milk and formula (similac). Mother is pumping 10-15ml of EMB at each pumping session. Handouts were given regarding storage, handling, preparation and feeding EMB. Additionally discussed how often to continue pumping once she is home. Parents understand education and do not have further questions at this time. Parents given contact information for after discharge should any questions arise once they are home.
[2024-05-25 11:31] VITALS: BP 134/70; PULSE 74; RESP 18; TEMP 36.8; O2SAT 100
== END 2024-05-24 12:22 | disposition home or self-care (01) | DRG 805 ==
LOC: ANHLDR 16:57 → ANHOB2 05-22 20:39
PROVIDERS: Admitting Provider Obstetrics & Gynecology; PCP Nurse Practitioner Family; Visit Provider Obstetrics & Gynecology
DX: O13.4 Gestational [pregnancy-induced] hypertension without significant proteinuria, complicating childbirth (principal); O41.1230 Chorioamnionitis, third trimester, not applicable or unspecified; Z37.0 Single live birth; Z3A.37 37 weeks gestation of pregnancy; O70.1 Second degree perineal laceration during delivery; O69.81X0 Labor and delivery complicated by cord around neck, without compression, not applicable or unspecified; O36.63X0 Maternal care for excessive fetal growth, third trimester, not applicable or unspecified
CPT/HCPCS: 36415; 80053; 84550; 85025; 85027; 86592; 86703; 86850; 86900; 86901; 88307; A9270; G0432; J0290; J1580; J2590; J2795; J7120